=== PATIENT | female | born 1985 | race African-American/Black ===

== ENCOUNTER 2016-07-16 12:07 | Emergency (ER) | payer OTHER ==
[~2016-07-16] VITALS: Ht 172.7 cm; Wt 77.1 kg
[~2016-07-16 12:07] MED LIST: AUBRA PO; FOLIC ACID; IRON; [UNRECOGNIZED DRUG - REMARK]
[2016-07-16 12:15] VITALS: BP 113/51
[2016-07-16] MEDS ORDERED: PROVENTIL HFA M18 GM INH (12:17)
--- NOTE | 2016-07-16 12:21 | NUR ---
PT TAKEN TO BED 5
--- NOTE | 2016-07-16 12:29 | NUR ---
PT TAKEN TO RD VIA WHEELCHAIR.
--- NOTE | 2016-07-16 12:39 | NUR ---
PATIENT RETURNED TO BED 5 AT THIS TIME; PRESENTS TO ED WITH RIGHT KNEE PAIN X1 MONTH . DENIES N/V/D; SKIN IS PINK/WARM/DRY; AAOX4 WITH EVEN AND STEADY GAIT; LUNGS CLEAR BL; HR EVEN AND REGULAR; PT DENIES ANY FEVER, CP, SOB, OR COUGH AT THIS TIME; PATIENT STATES PAIN OF "ABOVE A 10/10" AT THIS TIME; VSS; PATIENT POSITIONED FOR COMFORT; HOB ELEVATED; BEDRAILS UP X2; BED DOWN. ER MADE AWARE OF PT STATUS. Addendum: 07/16/16 at 1242 by [email or web address] CORRECTION: PAIN X2 MONTHS
--- NOTE | 2016-07-16 13:13 | NUR ---
DR. HARRIS EVALUATING PATIENT AT BEDSIDE.
[2016-07-16] MEDS ORDERED: KETOROLAC 60 MG/2 ML VIAL IM ONE (13:20)
[2016-07-16 14:02] VITALS: BP 112/55
--- NOTE | 2016-07-16 14:06 | NUR ---
Patient discharged with v/s stable. Written and verbal after care instructions given and explained. Patient alert, oriented and verbalized understanding of instructions. Ambulatory with steady gait. All questions addressed prior to discharge. ID band removed. Patient advised to follow up with PMD. Rx of NORCO 10 given. Patient educated on indication of medication including possible reaction and side effects. Opportunity to ask questions provided and answered.
== END 2016-07-16 14:06 | disposition home or self-care (01) ==
LOC: MED 12:07
DX: M25.561 Pain in right knee (principal); J45.909 Unspecified asthma, uncomplicated; Z88.1 Allergy status to other antibiotic agents; Z88.6 Allergy status to analgesic agent
CPT/HCPCS: 73562; 96372; 99284; J1885

== ENCOUNTER 2017-01-22 21:25 | Emergency (ER) | payer OTHER ==
[~2017-01-22] VITALS: Ht 172.7 cm; Wt 74.8 kg
[~2017-01-22 21:25] MED LIST changes: +ALBU0.0912 INH; -AUBRA PO; -FOLIC ACID; -IRON; -[UNRECOGNIZED DRUG - REMARK]
[2017-01-22 21:32] VITALS: BP 132/80
[2017-01-22] MEDS ORDERED: IBUPROFEN 600 MG TAB PO ONE (23:00)
[2017-01-22 23:30] VITALS: BP 128/79
== END 2017-01-22 23:30 | disposition home or self-care (01) ==
LOC: MED 21:25
DX: M79.641 Pain in right hand (principal); J45.909 Unspecified asthma, uncomplicated; Z88.1 Allergy status to other antibiotic agents
CPT/HCPCS: 73100; 99284

== ENCOUNTER 2017-01-27 03:55 | Emergency (ER) | payer OTHER ==
[~2017-01-27] VITALS: Ht 172.7 cm; Wt 74.8 kg
[2017-01-27 04:06] VITALS: BP 117/76
--- NOTE | 2017-01-27 04:45 | NUR ---
Patient to bed 03.
--- NOTE | 2017-01-27 04:48 | NUR ---
Dr. Aquino evaluating patient at bedside.
--- NOTE | 2017-01-27 04:50 | NUR ---
PATIENT PRESENTS TO ED WITH C/O RT ARM PAIN . PT DENIES N/V/D; SKIN IS PINK/WARM/DRY; AAOX4 WITH EVEN AND STEADY GAIT; LUNGS CLEAR BL; HR EVEN AND REGULAR; PT DENIES ANY FEVER, CP, SOB, OR COUGH AT THIS TIME; PATIENT STATES PAIN OF 8/10 AT THIS TIME; VSS; PATIENT POSITIONED FOR COMFORT; HOB ELEVATED; BEDRAILS UP X2; BED DOWN. ER MD MADE AWARE OF PT STATUS.
[2017-01-27 05:43] VITALS: BP 117/76
--- NOTE | 2017-01-27 05:43 | NUR ---
Patient discharged with v/s stable. Written and verbal after care instructions given and explained. Patient alert, oriented and verbalized understanding of instructions. Ambulatory with steady gait. All questions addressed prior to discharge. ID band removed. Patient advised to follow up with PMD. Rx of TRAMADOL 50 MG given. Patient educated on indication of medication including possible reaction and side effects. Opportunity to ask questions provided and answered.
== END 2017-01-27 05:43 | disposition home or self-care (01) ==
LOC: MED 03:55
DX: M79.631 Pain in right forearm (principal); R07.9 Chest pain, unspecified; J45.909 Unspecified asthma, uncomplicated; Z88.1 Allergy status to other antibiotic agents
CPT/HCPCS: 71010; 93005; 99284; Q0092

== ENCOUNTER 2017-08-23 08:33 | Emergency (ER) | payer OTHER ==
[~2017-08-23] VITALS: Ht 172.7 cm; Wt 70.3 kg
[2017-08-23 08:37] VITALS: BP 100/74
--- NOTE | 2017-08-23 08:44 | NUR ---
PT AMBULATED TO BED 3.
--- NOTE | 2017-08-23 08:50 | NUR ---
32 YO F BIB SELF W/ C/O CONSTANT DIZZNESS AND 8/10 RLQ ABD PAIN X 10 DAYS. CONSTANT "SHARP" PAIN OF ABD, "THROBBING" SIGALA 8/10. PT HX OF VERTIGO, ANXIETY, DEPRESSION, AND ASTHMA. VISUAL DISTURBANCES REPORTED, "SEEING BLURRY AND DOUBLE". PT REPORTS CHEST "TIGHTNESS" THAT DOES NOT RADIATE AND IS WORSE WITH INHALE, STATES "INDIGESTION" FEELING. LMP UNKNOWN. LIGHT SPOTTING JUL 13, 2017. PT A & O X 4. SKIN COLOR WITHIN NORMAL LIMITS. NO ACUTE DISTRESS NOTED. ER MD LOZOYA AWARE OF PT STATUS. PT NEEDS MET AT THIS TIME. WILL CONTINUE TO MONITOR.
--- NOTE | 2017-08-23 09:42 | NUR ---
UPDATED PATIENT ON PLAN OF CARE. PT VERBALIZED UNDERSTANDING. PT WITH NO COMPLAINTS. WILL CONTINUE TO MONITOR.
--- NOTE | 2017-08-23 09:42 | NUR ---
LAB BY BEDSIDE
[2017-08-23 10:42] LABS: APPEARANCE,URINE CLEAR (CLEAR); BILIRUBIN,URINE NEGATIVE (NEGATIVE); BLOOD, URINE NEGATIVE (NEGATIVE); COLOR,URINE YELLOW (YELLOW); LEUKOCYTE ESTERASE ,URINE NEGATIVE (NEGATIVE); NITRITE, URINE NEGATIVE (NEGATIVE); UGLUCOSE NEGATIVE (NEGATIVE)
[2017-08-23 11:14] VITALS: BP 99/57
--- NOTE | 2017-08-23 11:14 | NUR ---
Patient discharged with v/s stable. Written and verbal after care instructions given and explained. Patient verbalized understanding. Ambulatory with steady gait. All questions addressed prior to discharge. Advised to follow up with PMD. Patient given referral to [facility] for [facility]. Pt verbalized understanding of information given.
== END 2017-08-23 11:14 | disposition home or self-care (01) ==
LOC: MED 08:33
DX: O26.891 Other specified pregnancy related conditions, first trimester (principal); R42 Dizziness and giddiness; R00.2 Palpitations; J45.909 Unspecified asthma, uncomplicated; Z88.1 Allergy status to other antibiotic agents
CPT/HCPCS: 36415; 81003; 81025; 84702; 86901; 93005; 99285

== ENCOUNTER 2022-01-01 12:11 | Emergency (ER) | payer OTHER ==
[~2022-01-01] VITALS: Ht 172.7 cm; Wt 86.2 kg
[2022-01-01 12:34] VITALS: BP 115/66
--- NOTE | 2022-01-01 12:44 | NUR ---
PT AMBULATED TO BED 04.
[2022-01-01] MEDS ORDERED: DICYCLOMINE HCL LIQUID 20 MG, ALUMINUM HYD/MAG/SIMETHICONE 30 ML, LIDOCAINE VISCOUS 2% ... PO ONE ×3 (13:25)
[2022-01-01] MEDS ORDERED: NACL 0.9% 500 ML IV ONE (13:25)
[2022-01-01] MEDS ORDERED: ALUMINUM HYD/MAG/SIMETHICONE 30 ML UDC ONE (13:28)
[2022-01-01] MEDS ORDERED: DICYCLOMINE HCL LIQUID 10 MG/5 ML UDC ONE (13:28)
[2022-01-01 14:08] LABS: BASOPHILS % (AUTO) 0.4 % (0.0-2.0); EOSINOPHILS % (AUTO) 0.2 % (0.0-4.0); HEMATOCRIT 37.2 % (36-48); LYMPHOCYTES # (AUTO) 1.8 K/uL (2.5-16.5); LYMPHOCYTES % (AUTO) 25.3 % (20.5-51.1); MEAN CORPUSCULAR HEMOGLOBIN 28 pg (27-31); MEAN CORPUSCULAR HGB CONC 32 g/dL (33-37); MEAN CORPUSCULAR VOLUME 86.9 fL (80-94); MONOCYTES # (AUTO) 0.5 K/uL (0.8-1.0); MONOCYTES % (AUTO) 7.1 % (1.7-9.3); NEUTROPHILS # (AUTO) 4.8 K/uL (1.8-7.7); PLATELET COUNT (AUTO) 198 K/uL (140-450); RED BLOOD CELL COUNT(AUTO) 4.28 MIL/uL (4.20-5.40); RED CELL DISTRIBUTION WIDTH 14.3 % (11.6-13.7); WHITE BLOOD COUNT (AUTO) 7.2 K/uL (4.8-10.8)
[2022-01-01 14:10] LABS: APPEARANCE,URINE SL CLOUDY (CLEAR); BILIRUBIN,URINE NEGATIVE (NEGATIVE); BLOOD, URINE 3+ (NEGATIVE); COLOR,URINE AMBER (YELLOW); LEUKOCYTE ESTERASE ,URINE NEGATIVE (NEGATIVE); NITRITE, URINE NEGATIVE (NEGATIVE); UGLUCOSE NEGATIVE (NEGATIVE)
[2022-01-01] MEDS ORDERED: KETOROLAC 15 MG/ML VIAL IVP ONE (14:15)
[2022-01-01 14:29] LABS: ALBUMIN 3.7 g/dL (3.4-5.0); ANION GAP 13.1 (8-16); CREATININE 0.8 mg/dL (0.6-1.3); POTASSIUM 4.1 mmol/L (3.5-5.1); TOTAL BILIRUBIN 0.5 mg/dL (0.0-1.0)
--- NOTE | 2022-01-01 14:30 | NUR ---
Chaperoned SILVIA Roldan during assessment.
[2022-01-01 14:47] LABS: RBC,URINE 11-20 (MOD) /HPF (0-5); WBC,URINE 0-5 /HPF (0-5)
[2022-01-01 14:48] LABS: OTHER CASTS, URINE None Seen /LPF (None Seen)
[2022-01-01] MEDS ORDERED: ALUM355S5 PO (15:10)
[2022-01-01] MEDS ORDERED: PHEN26CR2 RC (15:10)
[2022-01-01] MEDS ORDERED: IMO2 PO (15:10)
[2022-01-01] MEDS ORDERED: BEN10 PO (15:10)
[2022-01-01] MEDS ORDERED: ONDA-188 PO (15:10)
[2022-01-01 15:42] VITALS: BP 116/64
--- NOTE | 2022-01-01 15:42 | NUR ---
Patient discharged with v/s stable. Written and verbal after care instructions given. Patient alert, oriented and verbalized understanding of instructions. Ambulatory with steady gait. All questions addressed prior to discharge. ID band removed. Patient advised to follow up with PMD. Rx of Advanced Antacid Liquid, Bentyl, Loperamide, Zofran ODT and Prepartation H Cream given. Opportunity to ask questions provided and answered.
--- NOTE | 2022-01-01 15:43 | NUR ---
The patient's care was reviewed and supervised by Delilah Alonzo RN.
== END 2022-01-01 15:42 | disposition home or self-care (01) ==
LOC: MED 12:11
DX: R11.2 Nausea with vomiting, unspecified (principal); R19.7 Diarrhea, unspecified; R10.13 Epigastric pain; J45.909 Unspecified asthma, uncomplicated; Z88.1 Allergy status to other antibiotic agents; Z79.899 Other long term (current) drug therapy
CPT/HCPCS: 36415; 80053; 81001; 81025; 83690; 85025; 96361; 96374; 99283; J1885; J7030

== ENCOUNTER 2022-03-12 09:45 | Emergency (ER) | payer OTHER ==
[~2022-03-12] VITALS: Ht 172.7 cm; Wt 87.1 kg
[~2022-03-12 09:45] MED LIST changes: +ALUM355S5 PO; +BEN10 PO; +IMO2 PO; +ONDA-188 PO; +PHEN26CR2 RC
[2022-03-12 10:01] VITALS: BP 114/71
--- NOTE | 2022-03-12 10:05 | NUR ---
PT AMBULATED TO BED 08.
--- NOTE | 2022-03-12 10:18 | NUR ---
36 y/o female bib self with c/o chills, nausea, vomiting, diarrhea and epigastric pain x 3 days. Patient treated her diarrhea with Immodium. Patient states she had this before back in December but does not remember what they told her. Patient denies any fever, sick contacts or new foods. Denies any dyuria or discharge in urine. Medical History: Asthma ALLERGY: AMOXICILLIN, KEFLEX
--- NOTE | 2022-03-12 11:11 | NUR ---
Dr. Dumont evaluating patient at bedside.
[2022-03-12] MEDS ORDERED: ALUMINUM HYD/MAG/SIMETHICONE 30 ML UDC PO ONE (11:20)
[2022-03-12] MEDS ORDERED: METOCLOPRAMIDE 10 MG/2 ML INJ VIAL IVP ONE (11:20)
[2022-03-12] MEDS ORDERED: NACL 0.9% 1,000 ML IV ONE (11:20)
[2022-03-12] MEDS ORDERED: DICYCLOMINE 10 MG CAP PO ONE (11:20)
[2022-03-12] MEDS ORDERED: KETOROLAC 15 MG/ML VIAL IVP ONE (11:20)
--- NOTE | 2022-03-12 12:02 | NUR ---
Lab at bedside
[2022-03-12 12:20] LABS: BASOPHILS % (AUTO) 0.1 % (0.0-2.0); EOSINOPHILS % (AUTO) 0.3 % (0.0-4.0); HEMATOCRIT 36.3 % (36-48); HEMOGLOBIN 11.8 g/dL (12.0-16.0); LYMPHOCYTES # (AUTO) 0.5 K/uL (2.5-16.5); LYMPHOCYTES % (AUTO) 4.5 % (20.5-51.1); MEAN CORPUSCULAR HEMOGLOBIN 28 pg (27-31); MEAN CORPUSCULAR HGB CONC 32 g/dL (33-37); MEAN CORPUSCULAR VOLUME 85.2 fL (80-94); MONOCYTES # (AUTO) 0.7 K/uL (0.8-1.0); MONOCYTES % (AUTO) 7.1 % (1.7-9.3); NEUTROPHILS # (AUTO) 9.1 K/uL (1.8-7.7); PLATELET COUNT (AUTO) 192 K/uL (140-450); RED BLOOD CELL COUNT(AUTO) 4.26 MIL/uL (4.20-5.40); RED CELL DISTRIBUTION WIDTH 13.9 % (11.6-13.7); WHITE BLOOD COUNT (AUTO) 10.3 K/uL (4.8-10.8)
[2022-03-12] MEDS ORDERED: ALUMINUM HYD/MAG/SIMETHICONE 30 ML UDC ONE (12:26)
[2022-03-12] MEDS ORDERED: DICYCLOMINE 10 MG CAP ONE ×2 (12:26→12:30)
[2022-03-12 12:35] LABS: ALBUMIN 3.1 g/dL (3.4-5.0); ANION GAP 13.3 (8-16); CARBON DIOXIDE 23.3 mmol/L (21-32); CHLORIDE 109 mmol/L (98-107); CREATININE 0.7 mg/dL (0.6-1.3); GFR ARICAN-AMERICAN 122 mL/min (>90); GLUCOSE 103 mg/dL (74-106); LIPASE 46 U/L (73-393); POTASSIUM 3.6 mmol/L (3.5-5.1); SODIUM SERUM 142 mmol/L (136-145); TOTAL BILIRUBIN 1.4 mg/dL (0.0-1.0); UREA NITROGEN, BLOOD 7 mg/dL (7-18)
[2022-03-12] MEDS ORDERED: ONDA-188 SL (13:19)
[2022-03-12] MEDS ORDERED: MAA30 PO (13:19)
[2022-03-12] MEDS ORDERED: ACET-10509 PO (13:19)
[2022-03-12 13:46] VITALS: BP 96/51
--- NOTE | 2022-03-12 13:46 | NUR ---
Patient discharged with v/s stable. Written and verbal after care instructions given. Patient alert, oriented and verbalized understanding of instructions. Ambulatory with steady gait. All questions addressed prior to discharge. ID band removed. Patient advised to follow up with PMD. Rx of Tylenol, Mag-Al Plus Suspension and Zofran given. Opportunity to ask questions provided and answered.
--- NOTE | 2022-03-12 13:47 | NUR ---
The patient's care was reviewed and supervised by Delilah Alonzo RN.
== END 2022-03-12 13:46 | disposition home or self-care (01) ==
LOC: MED 09:45
DX: R10.13 Epigastric pain (principal); J45.909 Unspecified asthma, uncomplicated; Z88.1 Allergy status to other antibiotic agents; Z88.8 Allergy status to other drugs, medicaments and biological substances
CPT/HCPCS: 36415; 80053; 81002; 81025; 83690; 85025; 96361; 96374; 96375; 99285; J1885; J2765; J7030